=== PATIENT | female | born 2000 | race African-American/Black ===

== ENCOUNTER 2024-11-06 11:46 | Inpatient (IN) | payer SELFPAY ==
[~2024-11-06] VITALS: Ht 170.2 cm; Wt 84.4 kg
[2024-11-06 12:48] LABS: BASOPHILS % 0.4 % (0.0-2.0); EOSINOPHILS % 0.9 % (0.0-5.0); HEMATOCRIT. 39.6 % (36.0-48.0); HEMOGLOBIN. 13.6 g/dL (12.0-16.0); LYMPHOCYTES % 33.9 % (20.0-50.0); MEAN CORPUSCULAR HEMOGLOBIN 31.4 pg (28.0-32.0); MEAN CORPUSCULAR HGB CONC 34.2 g/dL (31.0-37.0); MEAN CORPUSCULAR VOLUME 91.9 fL (81.0-99.0); MEAN PLATELET VOLUME 7.8 fl (7.4-10.4); MONOCYTES % 5.7 % (2.0-8.0); NEUTROPHILS % 59.1 % (40.0-76.0); PLATELET 428 x1000/uL (130-400); RED BLOOD CELL COUNT 4.32 mill/uL (4.2-5.4); RED CELL DISTRIBUTION WIDTH 12.3 % (11.6-14.6); WHITE BLOOD COUNT 7.1 x1000/uL (4.5-11.0)
[2024-11-06 13:01] LABS: CHLORIDE 106 mEq/L (98-107); POTASSIUM 3.3 mEq/L (3.5-5.1); SODIUM 140 mEq/L (136-145)
[2024-11-06 13:03] LABS: CALCIUM 9.4 mg/dL (8.7-10.4); CARBON DIOXIDE 25 mEq/L (21-32)
[2024-11-06 13:06] LABS: PROTHROMBIN TIME 10.7 sec (9.6-11.0)
[2024-11-06 13:08] LABS: CREATININE 0.9 mg/dL (0.6-1.0); GLUCOSE 105 mg/dL (70-105); UREA NITROGEN BLOOD 7 mg/dL (9-23)
[2024-11-06 13:09] LABS: ALANINE AMINOTRANSFERASE 12 IU/L (10-49)
[2024-11-06 13:10] LABS: ALBUMIN 4.4 g/dL (3.2-4.8); ASPARTATE AMINOTRANSFERASE 15 IU/L (<34); BILIRUBIN DIRECT 0.2 mg/dL (<=3.0); BILIRUBIN TOTAL 0.8 mg/dL (0.1-1.0)
[2024-11-06 13:11] LABS: PROTEIN TOTAL 7.6 g/dL (6.0-8.3)
[2024-11-06] MEDS: ONDANSETRON HCL 4MG/2ML INJ IV NR ×2 (13:13→14:55)
[2024-11-06 13:16] LABS: HCG SCREEN NEGATIVE
[2024-11-06] MEDS: FAMOTIDINE 20MG/2ML VIAL IV NR (16:38)
[2024-11-06] MEDS: METOCLOPRAMIDE HCL 10MG/2ML VIAL IV NR (16:38)
[2024-11-06] MEDS: KETOROLAC 15MG/ML VIAL IV NR (18:51)
[2024-11-06 20:50] VITALS: BP 129/78; PULSE 69; RESP 16; TEMP 36.4; O2SAT 100
[2024-11-06] MEDS: ONDANSETRON HCL 4MG/2ML INJ IV PRN (21:11)
[2024-11-06] MEDS: HYDROCODONE/ACETAMINOPHEN 5/325MG TABLET PO PRN (21:12)
[2024-11-06 23:15] VITALS: BP 129/78; PULSE 69; RESP 16; TEMP 36.4
[2024-11-07 04:00] VITALS: BP 107/58; PULSE 62; RESP 16; TEMP 37; O2SAT 98
[2024-11-07 07:17] LABS: CLARITY URINE CLEAR (CLEAR); COLOR URINE YELLOW (YELLOW)
[2024-11-07 07:18] LABS: GLUCOSE URINE NEGATIVE (NEGATIVE); KETONES URINE 2+ (NEGATIVE); LEUKOCYTE ESTERASE URINE NEGATIVE (NEGATIVE); NITRITE URINE NEGATIVE (NEGATIVE); OCCULT BLOOD URINE NEGATIVE (NEGATIVE); PH URINE 6.5 (4.5-8.0); PROTEIN URINE TRACE (NEGATIVE); SPECIFIC GRAVITY URINE 1.024 (1.005-1.030); UROBILINOGEN URINE 0.2 E.U./dL (0.2-1.0)
[2024-11-07 08:00] VITALS: BP 104/65; PULSE 61; RESP 20; TEMP 36.8; O2SAT 99
[2024-11-07 08:07] LABS: MUCUS URINE 2+ /lpf (< = 2+); SQUAMOUS EPITHELIAL CELL URINE FEW /lpf (RARE/1+)
[2024-11-07 08:12] LABS: RBC URINE NONE SEEN /hpf (0-2); WBC URINE 0-2 /hpf (0-2)
[2024-11-07 08:13] LABS: BACTERIA URINE TRACE
[2024-11-07] MEDS: PANTOPRAZOLE 40MG DR TABLET PO SCH (08:25)
[2024-11-07 10:48] LABS: BASOPHILS % 0.5 % (0.0-2.0); EOSINOPHILS % 0.3 % (0.0-5.0); HEMOGLOBIN. 12.4 g/dL (12.0-16.0); LYMPHOCYTES % 20.1 % (20.0-50.0); MEAN CORPUSCULAR HEMOGLOBIN 31.6 pg (28.0-32.0); MEAN CORPUSCULAR HGB CONC 33.4 g/dL (31.0-37.0); MEAN CORPUSCULAR VOLUME 94.5 fL (81.0-99.0); MEAN PLATELET VOLUME 8.2 fl (7.4-10.4); NEUTROPHILS % 70.1 % (40.0-76.0); PLATELET 324 x1000/uL (130-400); RED BLOOD CELL COUNT 3.92 mill/uL (4.2-5.4); RED CELL DISTRIBUTION WIDTH 12.4 % (11.6-14.6); WHITE BLOOD COUNT 9.5 x1000/uL (4.5-11.0)
[2024-11-07 11:09] LABS: CALCIUM 9.4 mg/dL (8.7-10.4); CARBON DIOXIDE 23 mEq/L (21-32); CHLORIDE 108 mEq/L (98-107); POTASSIUM 3.2 mEq/L (3.5-5.1); SODIUM 140 mEq/L (136-145)
[2024-11-07 11:14] LABS: CREATININE 0.9 mg/dL (0.6-1.0); GLUCOSE 89 mg/dL (70-105); UREA NITROGEN BLOOD 9 mg/dL (9-23)
[2024-11-07 12:00] VITALS: BP 98/52; PULSE 68; RESP 20; TEMP 36.5; O2SAT 100
[2024-11-07] MEDS ORDERED: NALOXONE HCL 0.4MG/ML VIAL IV PRN (12:00)
[2024-11-07] MEDS: POTASSIUM CHLORIDE 20MEQ TABLET SR PO NR (12:12)
[2024-11-07 14:38] VITALS: BP 98/52; PULSE 68; TEMP 97.7; O2SAT 100
== END 2024-11-07 15:18 | disposition home or self-care (01) | DRG 249 ==
LOC: ER 11:46 → EDBEDREQ 18:46 → EDBEDREQTM 18:46 → 8EST 19:51
PROVIDERS: ADMIT Internal Medicine; ATTEND Internal Medicine
DX: R11.2 Nausea with vomiting, unspecified (principal); R10.9 Unspecified abdominal pain
CPT/HCPCS: 36415; 74176; 80048; 80076; 81003; 84703; 85025; 99285; J1885; J2405; J2765; J3490